=== PATIENT | male | born 1935 | race Caucasian/White ===

== ENCOUNTER 2017-06-08 06:36 | Observation (INO) | payer MEDICARE, BC ==
[~2017-06-08] VITALS: Ht 170.2 cm; Wt 77.2 kg
--- NOTE | ~2017-06-08 | TEE ---
Transesophageal Echocardiogram [facility] [address] [place]. [address] NAME: ANDRIA LEVY : 35 STATUS : REG REF PAT#: [id number] AGE: 82 ADM/REG DATE : 06/08/17 MR#: [id number] REPORT SERV DATE: 06/08/17 DICTATED BY: ROB HOOVER DATE: 06/08/17 REPORT STATUS : Draft TRANSCRIBED BY: MODL DATE: 06/08/17 REQUESTING PHYSICIAN: Tc Barcenas M.D. INDICATIONS: An 82-year-old male with severe mitral regurgitation to further assess mitral valve anatomy and mitral regurgitation severity. PROCEDURES PERFORMED: Included 2D, 3D, color, and spectral Doppler. 3D interrogation of the mitral valve was performed with personal online manual manipulation of 3D data set to further assess mitral valve anatomy. TECH: TD. The overall quality of the study was good. Informed consent was obtained, signed, and on the chart prior to proceeding. A time-out was performed. Sedation was per Anesthesia and esophageal intubation was without difficulty. FINDINGS: VALVES: 1. The mitral valve morphology is normal. There is mild annular calcification. The mitral leaflets are thickened and fully mobile. There is an independently mobile echodensity on the left atrial side of the lateral aspect of the posterior leaflet, P2 segment, consistent with a torn chordae tendineae and partial flail segment. There is no significant leaflet calcification. There is severe and very eccentric mitral regurgitation noted, Ronald II classification due to degenerative changes. The left and right superior pulmonary veins were noted with thick systolic flow reversal noted in both upper pulmonary veins. The calculated mitral valve area is 4.6 cm2 by direct 3D planimetry with a mean gradient of 1 mmHg. The vena contracted, seen on off- axis images, was 0.66 cm2. The calculated effective regurgitant orifice area by PISA calculation is 0.49 cm2 with a mitral regurgitant volume of 65 mL. The exam is performed with a heart rate of 70 beats per minute and a blood pressure of 130/70. 2. The aortic valve morphology is normal with mild sclerosis and adequate leaflet mobility. There is mild aortic regurgitation. 3. The pulmonic valve is grossly normal with adequate mobility. There is no significant pulmonic regurgitation. 4. The tricuspid valve morphology is normal with fully mobile leaflets. There is trivial tricuspid regurgitation, insufficient to quantify right ventricular systolic pressures. CHAMBERS: 1. Left atrium is moderately dilated. There is no mass or thrombus seen. 2. The left ventricle is normal size with a visually estimated LVEF is 60%. There are no regional wall motion abnormalities. 3. The right atrium is grossly normal in size. The superior and inferior vena cava appear normal. There is no mass or thrombus seen. 4. The right ventricle is normal in size and systolic function. Transesophageal Echocardiogram [address] [address] NAME: ANDRIA LEVY : 35 STATUS : REG REF PAT#: [id number] AGE: 82 ADM/REG DATE : 06/08/17 MR#: [id number] REPORT SERV DATE: 06/08/17 DICTATED BY: ROB HOOVER. DATE: 06/08/17 REPORT STATUS : Draft TRANSCRIBED BY: CORI DATE: 06/08/17 OTHER: The interatrial septum was examined with multiple angulations and appeared intact by visual inspection with no evidence of interatrial shunt seen by color Doppler. There was significant hyper-lipomatous thickening of the interatrial septal limbi. Potential septal crossing height was measured at 3.9 cm. There was no pericardial effusion. The descending thoracic aorta and aortic arch were evaluated and appeared normal in caliber with moderate complex atherosclerotic changes seen. COMPLICATIONS: None. CONCLUSION: 1. SEVERE ECCENTRIC MITRAL REGURGITATION, RONALD II CLASSIFICATION FROM DEGENERATIVE CHANGES. 2. THICKENED MITRAL LEAFLETS OF PARTIAL FLAIL P2 SEGMENT, LATERAL ASPECT, WITH A TORN CHORDAE TENDINEAE OUTLINED ABOVE. 3. MODERATE LEFT ATRIAL ENLARGEMENT. 4. NORMAL LV SIZE WITH PRESERVED EF, 60%. 5. INTACT INTERATRIAL SEPTUM WITH HYPER-LIPOMATOUS THICKENING OUTLINED ABOVE. AEA/MODL Rob Hoover M.D. / [id number] CC: Laisha Page M.D.
--- NOTE | ~2017-06-08 | CN ---
Consultation Report [facility] [address] [place]. [address] NAME: ANDRIA GE : 35 STATUS : REG REF PAT#: [id number] AGE: 82 ADM/REG DATE : 06/08/17 MR#: [id number] REPORT SERV DATE: 06/08/17 DICTATED BY: AZAM DELATORRE DATE: 06/08/17 REPORT STATUS : Draft TRANSCRIBED BY: MODL DATE: 06/08/17 ELECTROPHYSIOLOGY CONSULTATION DATE OF CONSULTATION: REASON FOR CONSULTATION: 2:1 AV block. HISTORY OF PRESENT ILLNESS: Mr. Ge is a very pleasant 82-year-old gentleman with a history of coronary artery disease, status post CAB; normal LV systolic function; history of renal disease. He was being assessed for mitral regurgitation and question of MitraClip and underwent a transesophageal echocardiogram today. 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 He has had a history of intermittent AV block in the past. Recently, he had complaints of a near syncopal event. He sees Dr. 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 The patient does not take any AV tessie blocking agents. PAST MEDICAL HISTORY: 1. Notable for severe mitral regurgitation. 2. Stage 3 kidney disease. 3. Type 2 diabetes. 4. Former smoker. 5. History of CAB. Normal LV systolic function on most recent echocardiogram. FAMILY HISTORY: Noncontributory. Negative for premature coronary artery disease or sudden cardiac . SOCIAL HISTORY: Currently negative for tobacco, but history of tobacco abuse. Negative for alcohol. The patient lives by himself. He is . REVIEW OF SYSTEMS: As noted above. All other systems reviewed and negative. PHYSICAL EXAMINATION: VITAL SIGNS: Heart rate of 35 beats per minute, occasionally will go up to 45 or 50 beats per minute, respirations 16, blood pressure 130/72. GENERAL: Well developed, well nourished. HEENT: No icterus. Good dentition. NECK: Supple. No masses or thyromegaly. LUNGS: Breathing comfortably. No rales or wheezes. COR: Irregularly irregular rhythm and also note a 4+ mitral regurgitant murmur at the left a left apex. ABD: Soft, nondistended, nontender, no hepatosplenomegaly. EXT: No clubbing, cyanosis or edema. Peripheral pulses 2+/=bilaterally. SKIN: Warm and dry. No visible lesions. Consultation Report [facility] [id number] [place]. [address] NAME: ANDRIA GE : 35 STATUS : REG REF PAT#: [id number] AGE: 82 ADM/REG DATE : 06/08/17 MR#: [id number] REPORT SERV DATE: 06/08/17 DICTATED BY: AZAM DELATORRE DATE: 06/08/17 REPORT STATUS : Draft TRANSCRIBED BY: CORI DATE: 06/08/17 MS: Chest wall without deformity, no obvious clavicular fractures. NEURO/PSYCH: Oriented X3. No anxiety or depression. EKG demonstrates 2:1 AV block. Intermittently, the patient will conduct with a long first- degree AV block, narrow complex QRS, QT interval also within normal limits. No evidence for ischemia, infarction, or chamber hypertrophy. IMPRESSION: A gentleman with symptomatic 2:1 AV block and what appears to be a progression of his underlying conduction system disease. He is on no AV tessie blocking agents. He has had near syncope at home. We have recommended that he stay in the hospital and plan to undergo permanent pacemaker tomorrow. I have discussed the pacemaker implantation with the patient and his family, noted how it was performed as well as the inherent risks which include but are not exclusive to: Bleeding, infection, pneumothorax, cardiac perforation, and risk of . The patient claims to understand these issues and is willing to proceed. He is willing to stay here overnight to have the pacemaker placed in the morning tomorrow. /CORI Azam Delatorre M.D. / [id number] CC: Laisha Page M.D.
[~2017-06-08 06:36] MED LIST: CLEAR EYE1 OPH; COZ25 PO; CYANO1000T PO; GLUCXL2.5 PO; HALF81 PO; KLONO2 PO; NITROSTAT0.4 MG SL; OCEAN NAS; PRAVACHOL40 MG PO; PREV15 PO; PREVACID OTC PO; TRICOR145 PO
[2017-06-08 07:08] LABS: BASOPHILS 0.3 %; BASOPHILS ABSOLUTE 0.02 10/3/uL (0.0-0.16); EOSINOPHILS 2.8 %; EOSINOPHILS ABSOLUTE 0.19 10/3/uL (0.0-0.53); HEMOGLOBIN 14.6 g/dL (13.6-17.8); IMMATURE GRANULOCYTES 0.1 %; IMMATURE GRANULOCYTES ABSOLUTE 0.01 10/3/uL (0.0-0.11); LYMPHOCYTES 30.7 %; MEAN CORPUS HGB CONC 33.2 g/dL (32.0-36.0); MEAN CORPUSCULAR HEMOGLOB 31.5 pg (26.0-34.0); MEAN CORPUSCULAR VOLUME 94.8 fL (80-100); MEAN PLATELET VOLUME 9.2 fL (9.2-13.0); MONOCYTES 8.1 %; MONOCYTES ABSOLUTE 0.55 10/3/uL (0.21-1.20); NEUTROPHILS ABSOLUTE 3.96 10/3/uL (2.02-8.40); PLATELET COUNT 259 10/3/uL (150-400); RBC DISTRIBUTION WIDTH 13.8 % (12.0-16.0); RED CELL COUNT 4.64 10/6/uL (4.7-6.1); WHITE BLOOD CELLS 6.8 10/3/uL (4.5-10.5)
[2017-06-08 07:10] LABS: MANUAL DIFF NO %
[2017-06-08 07:51] LABS: CALCIUM, SERUM 9.4 MG/DL (8.5-10.4); CHLORIDE, SERUM 108 MMOL/L (96-112); CO2 (CARBON DIOXIDE) 27 MMOL/L (24-34); CREATININE 2.15 MG/DL (0.70-1.30); GFR AFRICAN AMERICAN 32 ML/MIN (>=60); GFR NON AFRICAN AMERICAN 28 ML/MIN (>=60); GLUCOSE, SERUM 100 MG/DL (60-99); POTASSIUM, SERUM 4.3 MMOL/L (3.5-5.3); SODIUM, SERUM 141 MMOL/L (135-148)
[2017-06-08 08:14] LABS: BUN (BLOOD UREA NITROGEN) 28 MG/DL (6-23)
[2017-06-09 05:26] LABS: BASOPHILS 0.3 %; BASOPHILS ABSOLUTE 0.02 10/3/uL (0.0-0.16); EOSINOPHILS 3.5 %; EOSINOPHILS ABSOLUTE 0.21 10/3/uL (0.0-0.53); HEMATOCRIT 40.1 % (40.0-51.0); HEMOGLOBIN 13.3 g/dL (13.6-17.8); IMMATURE GRANULOCYTES 0.2 %; IMMATURE GRANULOCYTES ABSOLUTE 0.01 10/3/uL (0.0-0.11); LYMPHOCYTES 30.6 %; LYMPHOCYTES ABSOLUTE 1.85 10/3/uL (0.67-4.30); MEAN CORPUS HGB CONC 33.2 g/dL (32.0-36.0); MEAN CORPUSCULAR HEMOGLOB 31.4 pg (26.0-34.0); MEAN CORPUSCULAR VOLUME 94.6 fL (80-100); MEAN PLATELET VOLUME 9.7 fL (9.2-13.0); MONOCYTES 8.8 %; MONOCYTES ABSOLUTE 0.53 10/3/uL (0.21-1.20); NEUTROPHILS 56.6 %; NEUTROPHILS ABSOLUTE 3.42 10/3/uL (2.02-8.40); PLATELET COUNT 230 10/3/uL (150-400); RBC DISTRIBUTION WIDTH 13.6 % (12.0-16.0); RED CELL COUNT 4.24 10/6/uL (4.7-6.1)
[2017-06-09 05:27] LABS: MANUAL DIFF NO %
[2017-06-09 05:28] LABS: CALCIUM, SERUM 8.8 MG/DL (8.5-10.4); CHLORIDE, SERUM 109 MMOL/L (96-112); CO2 (CARBON DIOXIDE) 28 MMOL/L (24-34); CREATININE 2.18 MG/DL (0.70-1.30); GFR AFRICAN AMERICAN 32 ML/MIN (>=60); GFR NON AFRICAN AMERICAN 27 ML/MIN (>=60); GLUCOSE, SERUM 80 MG/DL (60-99); POTASSIUM, SERUM 4.4 MMOL/L (3.5-5.3); SODIUM, SERUM 143 MMOL/L (135-148)
[2017-06-09 05:29] LABS: BUN (BLOOD UREA NITROGEN) 32 MG/DL (6-23)
[2017-06-09 05:36] LABS: INTERNATIONAL NORMAL RATI 1.1 UNITS (-); PROTIME (NOT ORD) 13.6 SEC (12.0-14.5)
== END 2017-06-09 13:58 | disposition home or self-care (01) ==
LOC: SSU1 06:36 → SSUOP 06:36 → SSU1 06:45 → SSUOP 08:30 → SSU1 17:06 → SSUOP 17:07 → SSU1 06-09 13:58
PROVIDERS: Internal Medicine Cardiovascular Disease
PROC: 0JH606Z Insertion of Pacemaker, Dual Chamber into Chest Subcutaneous Tissue and Fascia, Open Approach (ICD-10-PCS; principal; 2017-06-08)
PROC: 02H63JZ Insertion of Pacemaker Lead into Right Atrium, Percutaneous Approach (ICD-10-PCS; 2017-06-08)
PROC: 02HK3JZ Insertion of Pacemaker Lead into Right Ventricle, Percutaneous Approach (ICD-10-PCS; 2017-06-08)
DX: I44.1 Atrioventricular block, second degree (principal); I34.0 Nonrheumatic mitral (valve) insufficiency; E78.5 Hyperlipidemia, unspecified; E11.22 Type 2 diabetes mellitus with diabetic chronic kidney disease; I12.9 Hypertensive chronic kidney disease with stage 1 through stage 4 chronic kidney disease, or unspecified chronic kidney disease; N18.3 Chronic kidney disease, stage 3 (moderate); K21.9 Gastro-esophageal reflux disease without esophagitis; Z87.891 Personal history of nicotine dependence; Z88.8 Allergy status to other drugs, medicaments and biological substances; Z79.82 Long term (current) use of aspirin; Z79.84 Long term (current) use of oral hypoglycemic drugs
CPT/HCPCS: 33208; 71010; 76376; 80048; 82962; 83735; 85025; 85610; 92960; 93005; 93312; 93320; 93325; A9270-GY; C1785; C1892; C1898; G0378; J0461; J0690; J3010